=== PATIENT | female | born 1985 | race Asian ===

== ENCOUNTER 2022-05-22 00:23 | Emergency (ER) | payer BC ==
[2022-05-22] MEDS ORDERED: Fleet Enema 133 ML BOT PR SCH (03:00)
== END 2022-05-22 02:57 | disposition home or self-care (01) ==
LOC: CSHERS 00:23
DX: K59.00 Constipation, unspecified (principal)
CPT/HCPCS: 36416; 93005

== ENCOUNTER 2023-03-05 09:52 | Day surgery (SDC) | payer BC ==
[2023-03-01 13:55] VITALS: BMI 24.0
[2023-03-02 17:05] LABS: Hematocrit 39.7 % (34.9-44.5); Hemoglobin 13.9 g/dL (12.0-15.5); Mean Corpuscular Hemoglobin 30.8 pg (27.0-33.0); Mean Corpuscular Volume 87.8 fl (81.6-98.3); Mean Platelet Volume 9.6 fl (7.4-10.4); Platelet Count 294 10x3/uL (150-450); RBC Distribution Width 12.8 % (11.5-14.5); Red Blood Cell (RBC) Count 4.52 10x6/uL (3.90-5.03); White Blood Cell (WBC) Count 8.6 10x3/uL (3.5-10.5)
[2023-03-02 17:23] LABS: BHCG - Serum Negative (NEGATIVE); Pregs Control Background? CLEAR/WHITE (CLR/WHITE); Pregs Control Bar Appear? YES (CONTROL BAR)
[2023-03-05] MEDS ORDERED: Midazolam HCl 2 mg/2 ml Vial ONE (11:58)
[2023-03-05] MEDS ORDERED: Propofol 1,000 MG/100 ML VIAL IV ONE (12:06)
[2023-03-05] MEDS ORDERED: PROPOFOL 20 ML ONE (12:07)
[2023-03-05] MEDS ORDERED: Ondansetron PF 4 MG/2 ML Vial ONE (12:07)
[2023-03-05] MEDS ORDERED: Dexamethasone 4 mg/ml Vial ONE (12:07)
[2023-03-05] MEDS ORDERED: fentaNYL 50 mcg/mL 1 mL Vial ONE (12:07)
[2023-03-05] MEDS ORDERED: PHENYLEPHRINE-NS 100 MCG/ML 10 ML SYRINGE ONE (12:16)
[2023-03-05] MEDS ORDERED: Lidocaine 2% PF 5 ML VIAL ONE (12:16)
[2023-03-05] MEDS ORDERED: ePHEDrine Sulfate 50 MG/10 ML VIAL ONE (12:17)
== END 2023-03-05 15:05 | disposition home or self-care (01) ==
LOC: CSHSDC 09:52
PROVIDERS: ATTEND Obstetrics & Gynecology
PROC: 0UDB8ZZ Extraction of Endometrium, Via Natural or Artificial Opening Endoscopic (ICD-10-PCS; principal; 2023-03-05)
DX: N84.0 Polyp of corpus uteri (principal); Z88.8 Allergy status to other drugs, medicaments and biological substances; Z88.1 Allergy status to other antibiotic agents; Z88.6 Allergy status to analgesic agent
CPT/HCPCS: 36415; 84703; 85027; 86850; 86900; 86901; 88305; J1100; J2001; J2250; J2405; J2704; J3010

== ENCOUNTER 2024-07-15 23:24 | Day surgery (SDC) | payer BC ==
[2024-07-15] MEDS ORDERED: hydrALAZINE 20 MG/ML VIAL SLOW IVP PRN (23:41)
[2024-07-15 23:51] VITALS: BMI 32.5
[2024-07-16 00:02] LABS: Bilirubin Neg (Negative); Blood, Urine Negative (Negative); Clarity Clear (Clear); Glucose, Urine (Dipstick) Normal (Negative); Ketone, Urine Negative (Negative); Leukocyte Negative (Negative); Nitrite Negative (Negative); Protein, Urine (Dipstick) Negative (Neg-Trace); Urobilinogen Normal mg/dL (Less than 2); pH, Urine 6.5 (5.0-9.0)
[2024-07-16 00:11] LABS: Bacteria/HPF 1+ HPF (None Seen); CAUTI Indications for Culture Pregnancy; RBC/HPF 0-3 HPF (0-3); WBC/HPF 0-3 HPF (0-3)
[2024-07-16 00:12] LABS: Urine Culture Reflex Yes Yes
== END 2024-07-16 00:56 | disposition home or self-care (01) ==
LOC: CSHLD/OP 23:24
PROVIDERS: ATTEND Obstetrics & Gynecology
DX: O99.891 Other specified diseases and conditions complicating pregnancy (principal); R10.31 Right lower quadrant pain; O09.513 Supervision of elderly primigravida, third trimester; Z3A.32 32 weeks gestation of pregnancy; Z88.8 Allergy status to other drugs, medicaments and biological substances; Z88.1 Allergy status to other antibiotic agents; Z79.899 Other long term (current) drug therapy
CPT/HCPCS: 81001; 87086; 99283